=== PATIENT | male | born 1990 | race Caucasian/White ===

== ENCOUNTER 2017-07-14 14:23 | Emergency (ER) | payer MEDICAID ==
[2017-07-14 16:06] LABS: BASOPHILS 0.3 % (0-2); EOSINOPHILS 0.6 % (0-7); HEMATOCRIT 42.2 % (42.0-54.0); HEMOGLOBIN 14.9 g/dL (13.5-17.5); IMMATURE GRANULOCYTES 0.2 % (0-5); LYMPHOCYTES 28.7 % (15-50); MCHC 35.3 g/dL (31.0-37.0); MCV 85.1 fL (80.0-100.0); MEAN PLATELET VOLUME 8.4 fL (7.4-10.4); MONOCYTES 11.8 % (2-11); NEUTROPHILS 58.4 % (40-80); PLATELET COUNT 178 10x3/uL (130-400); RBC 4.96 10x6/uL (4.20-6.10); RDW 12.2 % (11.5-14.5); WBC 8.6 10x3/uL (4.8-10.8)
[2017-07-14 16:55] LABS: APPEARANCE HAZY (CLEAR); COLOR DK YELLOW (YELLOW); SPECIFIC GRAVITY 1.015 (1.005-1.020)
[2017-07-14 16:56] LABS: BILIRUBIN NEGATIVE (NEGATIVE); GLUCOSE NEGATIVE (NEGATIVE); KETONE NEGATIVE (NEGATIVE); NITRITE NEGATIVE (NEGATIVE); PROTEIN NEGATIVE (NEGATIVE); UROBILINOGEN NORMAL (NORMAL)
[2017-07-14 16:57] LABS: WHITE CELLS - URINE 0-5 /hpf (0-5)
== END 2017-07-14 20:15 | disposition home or self-care (01) ==
LOC: D.ER 14:23
PROVIDERS: Family Medicine
DX: J20.9 Acute bronchitis, unspecified (principal); J06.9 Acute upper respiratory infection, unspecified

== ENCOUNTER 2018-10-18 03:31 | Emergency (ER) | payer OTHER ==
[~2018-10-18] VITALS: Ht 188 cm; Wt 113.6 kg
[2018-10-18 03:37] VITALS: Ht 188 cm; Wt 113.6 kg
[2018-10-18 03:59] LABS: BASOPHILS 0.2 % (0-2); EOSINOPHILS 1.1 % (0-7); HEMATOCRIT 43.1 % (42.0-54.0); HEMOGLOBIN 15.5 g/dL (13.5-17.5); IMMATURE GRANULOCYTES 0.2 % (0-5); LYMPHOCYTES 22.9 % (15-50); MCH 30.2 pg (26.0-34.0); MCV 83.9 fL (80.0-100.0); MEAN PLATELET VOLUME 8.9 fL (7.4-10.4); MONOCYTES 6.1 % (2-11); NEUTROPHILS 69.5 % (40-80); PLATELET COUNT 191 10x3/uL (130-400); RBC 5.14 10x6/uL (4.20-6.10); RDW 12.6 % (11.5-14.5); WBC 10.3 10x3/uL (4.8-10.8)
[2018-10-18 04:09] LABS: APPEARANCE CLEAR (CLEAR); BILIRUBIN NEGATIVE (NEGATIVE); COLOR YELLOW (YELLOW); GLUCOSE NEGATIVE (NEGATIVE); KETONE SMALL mg/dL (NEGATIVE); NITRITE NEGATIVE (NEGATIVE); PROTEIN NEGATIVE (NEGATIVE); UROBILINOGEN NORMAL (NORMAL)
[2018-10-18 04:16] LABS: ALBUMIN 4.2 g/dL (3.4-5.0); ALKALINE PHOSPHATASE 77 U/L (46-116); ALT (SGPT) 24 U/L (10-68); BILIRUBIN - TOTAL 1.12 mg/dL (0.2-1.3); CALC OSMOLALITY 278 mosm/kg (275-300); CALCIUM 9.2 mg/dL (8.5-10.1); CARBON DIOXIDE 26.4 mmol/L (21.0-32.0); CHLORIDE - SERUM 102 mmol/L (98-107); GLUCOSE 116 mg/dL (74-106); SODIUM 138 mmol/L (136-145); UREA NITROGEN 18 mg/dL (7-18); eGFR NON AFRICAN AMERICAN > 90 mL/min (90-120)
[2018-10-18 04:21] LABS: AMYLASE - SERUM 24 U/L (25-115); LIPASE 93 U/L (73-393)
[2018-10-18 04:25] LABS: TROPONIN-I < 0.017 ng/mL (0.000-0.060)
[2018-10-18] MEDS ORDERED: PROTONIX40 MG PO (06:12)
[2018-10-18] MEDS ORDERED: ONDANSETRON8 MG/TAB PO (06:13)
[2018-10-18 06:22] VITALS: BP 132/79
== END 2018-10-18 06:22 | disposition home or self-care (01) ==
LOC: D.ER 03:31
PROVIDERS: Family Medicine
DX: K29.70 Gastritis, unspecified, without bleeding (principal)